=== PATIENT | female | born 1990 | race Caucasian/White ===

== ENCOUNTER 2021-12-29 00:17 | Inpatient (IN) | payer OTHER, BC ==
[2021-12-29] VITALS (37 sets, daily range): BP systolic 107–139; BP diastolic 58–87; PULSE 54–92; TEMP 98–98.2
[~2021-12-29] VITALS: Ht 167.6 cm; Wt 72.7 kg
--- NOTE | 2021-12-29 00:25 | NUR ---
0025- PT PRESENTS TO LDR WITH COMPLAINTS OF CONTRACTIONS. AMBULATORY TO ROOM LR5, CHANGED INTO GOWN. 0030- EFM X2 APPLIED. PT DENIES LEAKING. REPORTS PAINFUL CONTRACTIONS ABOUT EVERY 4 MINUTES, SOME VARIABLE PINKISH/BROWNISH SPOTTING, AND REGULAR MOVEMENT. PLAN OF CARE FOR LABOR CHECK DISCUSSED AND QUESTIONS ANSWERED. 0035- SVE /-2 WITH MODERATE AMOUNT OF THICK BROWN (OLD BLOOD) DISCHARGE NOTED. DISCUSSED WATCHING EFM FOR AN HOUR AND RECHECKING CERVIX. PT AGREEABLE WITH THIS PLAN. 0040- NURSING ADMISSION HISTORY AND ASSESSMENT COMPLETE. ORAL HYDRATION PROVIDED INCLUDING JUICE. 0135- PT REPORTS CONTRACTIONS ARE ABOUT THE SAME. PAIN SEEMS TO BE IN HER BACK MOSTLY. SVE BY THIS NURSE UNCHANGED. DISCUSSED LACK OF MODERATE VARIABILITY AND ACCELERATIONS IN HEART TRACING AND WHAT THAT MIGHT MEAN FOR PLAN OF CARE. QUESTIONS ANSWERED. 0140- DR IRVIN CALLED CHARTED. ORDERS TO WATCH ANOTHER HOUR. 0145- PT AND UPDATED ON PLAN OF CARE AND QUESTIONS ANSWERED. PT DENIES FURTHER NEEDS AT THIS TIME.
[2021-12-29] MEDS ORDERED: QUALITY CHOICE1 TA7 (00:49)
[2021-12-29 03:21] LABS: HEMATOCRIT 40.1 % (37.0-47.0); HEMOGLOBIN 14.4 g/dl (12.5-16.0); MEAN CELL VOLUME 90 fl (80.0-100.0); MEAN CORPUSCULAR HEMOGLOBIN 32 pg (27-31); MEAN CORPUSCULAR HGB CONC 36 g/dl (33.0-37.0); MEAN PLATELET VOLUME 9.2 fl (7.4-10.4); PLATELET COUNT 212 K/mm3 (130-400); RED BLOOD COUNT 4.47 M/mm3 (4.10-5.30); REDCELL DISTRIBUTION WIDTH-CV 12.9 % (11.5-14.5)
[2021-12-29 03:40] LABS: ALBUMIN 3.2 gm/dL (3.5-5.0); BILIRUBIN,TOTAL 0.5 mg/dL (0.2-1.2); CALCIUM 9.5 mg/dL (8.4-10.2); CREATININE, serum 0.63 mg/dL (0.57-1.11); POTASSIUM 3.9 mmol/L (3.5-4.5); TOTAL PROTEIN 6.7 gm/dL (6.2-8.1)
--- NOTE | 2021-12-29 04:00 | NUR ---
0400- PT REPORTS THAT HER NAUSEA IS MUCH BETTER. SHE STATES HER CONTRACTIONS MAY BE A LITTLE STRONGER NOW BUT SHE DOES NOT FEEL SHE NEEDS TO HAVE CERVICAL EXAM.
[2021-12-29 04:03] LABS: BAND 3 % (0-10); BASOPHIL 1 % (0-2); LYMPHOCYTE 12 % (20.0-51.0); NEUTROPHILS 78 % (42.0-75.2); PLATELET ESTIMATE NORMAL (NORMAL)
--- NOTE | 2021-12-29 05:35 | NUR ---
2094- PT REPORTS THAT HER CONTRACTIONS ARE MORE PAINFUL AT THIS TIME. SHE WOULD LIKE TO HAVE HER CERVIX EXAMINED. SVE BY THIS NURSE UNCHANGED -. DISCUSSED PLAN OF CARE WITH PT FOR HAVING DR ELIZABETH EVALUATE AT 0700. PT IS STILL AGREEABLE WITH THIS. 5096- PT ASSISTED UP TO BATHROOM.
--- NOTE | 2021-12-29 08:29 | NUR ---
Dr. Montero at the bedside. SVE done per Dr. Montero with AROM. Plan of care reviewed with pt and at the bedside.
--- NOTE | 2021-12-29 09:20 | NUR ---
09- MARIFER Thompson at the bedside for epidural placement per pt's request. Pt sitting on the edge of the bed. SPO2 monitor started. Time out done. 911- EFM intermittently tracing maternal HR as coorelates with SPO2 monitor. 919- Test dose done per MARIFER Thompson. See anesthesia records for details. 925- Assisted pt back to a supine position with left wedge. EFM and toco monitors adjusted.
--- NOTE | 2021-12-29 13:56 | NUR ---
1235- SVE done by this RN /+2. Dr. Montero notified. See physician notification for details. 1245- Cuevas removed without complications. 1250- Pushing instructions reviewed and pushing started. 1318- Dr. Montero at the bedside and pushing with pt. 1340- Pt set up for delivery. 1356- of viable female . placed on mom's abdomen. Care of the given to nursery RN at the bedside. 1402- of placenta. Pitocin started at 333ml/hr per order and protocol. Fundus firm per Dr. Montero and mey LUL.
--- NOTE | 2021-12-29 17:00 | NUR ---
Pt up to the bathroom with the use of the [place] [employer] and without complications. Pt was not able to void at this time. Emy-care done. Pt transferred to wheelchair and to the nursery for bath demostration and then to room 214. plan of care reviewed. Oriented to the room, bed and call light within reach.
[2021-12-30] MEDS ORDERED: IBU600 MG PO (09:01)
[2021-12-30 09:53] VITALS: BP 106/68; PULSE 58; TEMP 97.4
[2021-12-30 13:00] VITALS: BP 114/56; PULSE 59; TEMP 98.2
[2021-12-30 16:47] VITALS: BP 126/74; PULSE 64; TEMP 98.8
[2021-12-30 19:30] VITALS: BP 121/74; PULSE 61; TEMP 98
[2021-12-31 07:18] VITALS: BP 107/76; PULSE 83; TEMP 98.6
== END 2021-12-31 11:45 | disposition home or self-care (01) | DRG 807 ==
LOC: LDRO 00:17 → LDR 07:16 → OB 12-30 18:00
PROVIDERS: Obstetrics & Gynecology; ADMIT Obstetrics & Gynecology
PROC: 10E0XZZ Delivery of Products of Conception, External Approach (ICD-10-PCS; principal; 2021-12-29)
PROC: 0KQM0ZZ Repair Perineum Muscle, Open Approach (ICD-10-PCS; 2021-12-29)
PROC: 0UQMXZZ Repair Vulva, External Approach (ICD-10-PCS; 2021-12-29)
PROC: 10907ZC Drainage of Amniotic Fluid, Therapeutic from Products of Conception, Via Natural or Artificial Opening (ICD-10-PCS; 2021-12-29)
DX: O48.0 Post-term pregnancy (principal); Z37.0 Single live birth; Z3A.40 40 weeks gestation of pregnancy; O77.0 Labor and delivery complicated by meconium in amniotic fluid; O70.1 Second degree perineal laceration during delivery; O69.81X0 Labor and delivery complicated by cord around neck, without compression, not applicable or unspecified
CPT/HCPCS: J2405; J2590; J7120